=== PATIENT | female | born 1940 | race Caucasian/White ===

== ENCOUNTER → 2016-11-14 | Outpatient (CLI) | payer OTHER ==
[~2016-11-14] MED LIST: ASPI81TA28 PO; CHOL200027 PO; GLUC1TAB44 PO; MISCCAP80 PO; MULT-513 PO; NAPR1TAB9 PO; OMEG10002 PO
[2016-11-14 11:20] LABS: BASO % 0.9 %; BASO ABS # 0.04 K/uL (0-0.2); COMPLETE YES; EOS % 3.9 %; HEMATOCRIT 40.5 % (37-47); IG% 0.2 %; LYMPH % 45.9 %; LYMPH ABS # 2.01 K/uL (1.2-3.4); MEAN CELL VOLUME 92.3 fL (80-100); MEAN CORPUSCULAR HEMOGLOBIN 32.8 pg (25-34); MEAN CORPUSCULAR HGB CONC 35.6 g/dl (32-36); MONO % 7.8 %; NEUT % 41.3 %; PLATELET COUNT 208 K/uL (130-400); RED BLOOD COUNT 4.39 M/uL (4.2-5.4); WHITE BLOOD COUNT 4.38 K/uL (4.8-10.8)
[2016-11-14 11:59] LABS: ALT/SGPT 19 U/L (12-78); BLOOD UREA NITROGEN 14 mg/dl (7-18); BUN/CREATININE RATIO 18.2 (10-20); CALCIUM 8.7 mg/dl (8.5-10.1); CARBON DIOXIDE 34 mmol/L (21-32); CHLORIDE 98 mmol/L (98-107); CHOLESTEROL 213 mg/dl (0-200); CREATININE 0.74 mg/dl (0.60-1.20); GLUCOSE 87 mg/dl (70-99); POTASSIUM 3.8 mmol/L (3.5-5.1); SODIUM 135 mmol/L (136-145); TRIGLYCERIDES 91 mg/dl (0-150); VERY LOW DENSITY LIPOPROT CALC 18 mg/dl
[2016-11-14 12:02] LABS: ALB/GLOB RATIO 1.1 (0.9-2); ALKALINE PHOSPHATASE 71 U/L (45-117); AST/SGOT 19 U/L (15-37); CHOLESTEROL/HDL RATIO 2.6; HDL CHOLESTEROL 82 mg/dl; LDL CHOLESTEROL CALCULATED 113 mg/dl
== END | disposition home or self-care (01) ==
LOC: C.LABBC 09:14
PROVIDERS: ATTEND Family Medicine
DX: M85.80 Other specified disorders of bone density and structure, unspecified site (principal); E55.9 Vitamin D deficiency, unspecified; E78.5 Hyperlipidemia, unspecified; E83.110 Hereditary hemochromatosis

== ENCOUNTER → 2017-02-09 | Outpatient (CLI) | payer OTHER ==
--- NOTE | 2017-02-09 12:50 | DIAGNOSTIC IMAGING REPORT ---
CHEST 2 VIEWS ROUTINE HISTORY: Fever. Cough. COMPARISON: Chest CT 07/15/2016. FINDINGS: The heart is normal in size. Mildly tortuous thoracic aorta. No pleural effusions. No pneumothorax. Biapical densities, right greater than left. These are similar to the prior study. No new focal lung consolidations to suggest pneumonia. No evidence for pulmonary edema. IMPRESSION: No significant change compared to the prior study. No acute process. Electronically signed by: Fletcher Saunders M.D. 02/09/2017 12:49 PM Dictated Date/Time: 02/09/2017 12:45 PM
[2017-02-09 19:13] LABS: INFLUENZA A PCR Neg for Influ A (NEG); INFLUENZA B PCR Neg for Influ B (NEG)
== END | disposition home or self-care (01) ==
LOC: C.RADBC 12:21
PROVIDERS: ATTEND Family Medicine
DX: R50.9 Fever, unspecified (principal); R05 Cough

== ENCOUNTER → 2017-03-23 | Outpatient (CLI) | payer OTHER ==
[2017-03-23 14:58] LABS: LYME DISEASE AB IGG NEG (NEG)
[2017-03-23 15:01] LABS: LYME DISEASE AB IGM NEG (NEG)
== END | disposition home or self-care (01) ==
LOC: C.LABBC 08:17
PROVIDERS: ATTEND Physician Assistant
DX: T14.8 Other injury of unspecified body region (principal); W57.XXXA Bitten or stung by nonvenomous insect and other nonvenomous arthropods, initial encounter

== ENCOUNTER → 2017-05-05 | Outpatient (CLI) | payer OTHER ==
--- NOTE | 2017-05-05 14:32 | MAMMOGRAPHY REPORT ---
BILATERAL DIGITAL SCREENING MAMMOGRAM WITH CAD: 05/05/2017 CLINICAL HISTORY: Routine screening. Patient has no complaints. TECHNIQUE: Current study was also evaluated with a Computer Aided Detection (CAD) system. Bilateral CC and MLO views were obtained. COMPARISON: Comparison is made to exams dated: 04/21/2016 mammogram - [facility], mammogram, 03/31/2014 mammogram, and 03/28/2013 mammogram. BREAST COMPOSITION: The tissue of both breasts is heterogeneously dense, which may obscure small mas ses. FINDINGS: No suspicious masses, calcifications, or areas of architectural distortion are noted in ei ther breast. There has been no significant interval change compared to prior exams. A biopsy marker clip is again noted in the left 3:00 breast. Scattered bilateral benign-appearing calcifications are not significantly changed. IMPRESSION: ACR BI-RADS CATEGORY 2: BENIGN There is no mammographic evidence of malignancy. A 1 year screening mammogram is recommended. The pa tient will receive written notification of the results. Approximately 10% of breast cancers are not detected with mammography. A negative mammographic report should not delay biopsy if a clinically suggestive mass is present. Yuliana Doty M.D. ah/:05/05/2017 09:19:26 Hydrodynamics Teacher: Emma RINCON(Akash)(Sixto)(BD), [facility] letter sent: Normal 1/2 BI-RADS Code: ACR BI-RADS Category 2: Benign
== END | disposition home or self-care (01) ==
LOC: C.MAMM 08:48
PROVIDERS: ATTEND Obstetrics & Gynecology
DX: Z12.31 Encounter for screening mammogram for malignant neoplasm of breast (principal)

== ENCOUNTER → 2017-06-14 | Outpatient (CLI) | payer OTHER ==
[~2017-06-14] MED LIST changes: -ASPI81TA28 PO
--- NOTE | 2017-06-14 16:43 | DIAGNOSTIC IMAGING REPORT ---
LUMBAR SPINE W/O CONTRAST CLINICAL HISTORY: 76 years-old Female presenting with LUMBAR BACK PAIN, LUMBAR RADICULOPATHY, AFFECTING, prior lumbar surgery in 2010 on L4-5 and L5-S1, history of squamous cell skin cancer, injury to the back 6 weeks ago now with pain and numbness down the left leg. TECHNIQUE: Multisequence, multiplanar MR imaging of the lumbar spine was performed without the use of intravenous contrast. IV contrast: None. COMPARISON: None. FINDINGS: Localizer images: Unremarkable. Normal lumbar lordosis. Vertebral bodies demonstrate normal height, alignment, and bone marrow signal intensity with the exception of benign meningiomas noted in L2 and L3. Intervertebral disc desiccation and height loss noted at L3-4 and L4-5. Multilevel degenerative changes further detailed below: L1-2: Normal. L2-3: Minimal disc bulge. No significant spinal canal or neural foraminal narrowing. L3-4: Disc bulge with slight asymmetric effacement of the left lateral recess. Mild right neural foraminal narrowing. No significant spinal canal narrowing. L4-5: Annular tear suggested (series 5 image 10). Disc bulge and facet arthropathy. Postsurgical changes of L4 left hemilaminectomy. Mild bilateral neural foraminal narrowing. Ligamentum flavum thickening along the right in combination with the disc bulge efface the right lateral recess, resulting in abutment of the transiting right L5 nerve root. No significant spinal canal narrowing. L5-S1: Disc bulge and mild facet arthropathy. Postsurgical changes of L5 left hemilaminectomy. No significant neural foraminal or spinal canal narrowing. The spinal cord ends in good position at L1. Cauda equina normal in morphology. Paraspinal soft tissues demonstrate normal musculature. Small cystic lesion in the left kidney likely simple cyst. IMPRESSION: 1. Mild multilevel degenerative changes with postsurgical changes of left hemilaminectomies at L4 and L5. 2. Annular tear suggested at L4. 3. Degenerative change at L4-5 effaces the right lateral recess, resulting in abutment of the transiting right L5 nerve root. 4. Mild neural foraminal narrowing on the right at L3-4 and bilaterally at L4-5. No spinal canal narrowing. Electronically signed by: Pk Pepe M.D. 06/14/2017 4:42 PM Dictated Date/Time: 06/14/2017 4:33 PM
== END | disposition home or self-care (01) ==
LOC: C.MRIBC 15:26
PROVIDERS: ATTEND Physician Assistant Medical
DX: M54.17 Radiculopathy, lumbosacral region (principal)

== ENCOUNTER → 2017-09-21 | Day surgery (SDC) | payer OTHER ==
[2017-09-05 12:36] VITALS: Ht 166.4 cm; Wt 61.4 kg
[~2017-09-21] VITALS: Ht 166.4 cm; Wt 61.4 kg
[~2017-09-21] MED LIST changes: +LIDOCAINE HCL 1% MPF 5 ML VIAL ONE; +SODIUM CHLORIDE 0.9% INJ 10 ML VIAL ONE
--- NOTE | 2017-09-21 13:47 | History & Physical Bridge - SC ---
H&P Re-Evaluation Bridge Note: I have examined the patient, reviewed the History & Physical and in the interval since the performance of the History & Physical I have noted the following changes of clinical significance: No changes noted
[2017-09-21 14:05] VITALS: TEMP 37.3
--- NOTE | 2017-09-21 14:13 | Discharge Instructions ---
Discharge Instructions Date of Service Sep 21, 2017. Visit Reason for Visit: Sacral Radiculopathy Discharge Discharge Diagnosis / Problem: left leg pain Discharge Goals Goal(s): Decrease discomfort, Improve function Activity Recommendations Activity Limitations: resume your previous activity Anesthesia . Post Anesthesia Instructions: If you have had General Anesthesia or IV Sedation: * Do not drive today. * Resume driving when surgeon permits. * Do not make important decisions or sign legal documents today. * Call surgeon for: 1. Temperature elevations greater than 101 degrees F. 2. Uncontrollable pain. 3. Excessive bleeding. 4. Persistent nausea and vomiting. 5. Medication intolerance (nausea, vomiting or rash). * For nausea and vomiting use only clear liquids such as: tea, soda, bouillon until nausea subsides, then gradually increase diet as tolerated. * If you have any concerns or questions, call your surgeon's office. If physician is unavailable and it is an emergency, call 911 or go to the nearest emergency room. . Diet Recommendations Recommended Home Diet: resume previous diet Procedures Procedures Performed: Caudal Epidural Steroid Injection Pending Studies Studies pending at discharge: no Medical Emergencies . Who to Call and When: Medical Emergencies: If at any time you feel your situation is an emergency, please call 911 immediately. . Non-Emergent Contact Non-Emergency issues call your: Specialist . . "Provider Documentation" section prepared by Max Hamlin. .
[2017-09-21 14:21] VITALS: BP 174/82; PULSE 71; O2SAT 100
--- NOTE | 2017-09-21 15:07 | OPERATIVE REPORT ---
DATE OF OPERATION: 09/21/2017 PREOPERATIVE DIAGNOSES: L5-S1 disk disease with a left S1 radiculopathy and post-laminectomy syndrome, L4-L5 and L5-S1. POSTOPERATIVE DIAGNOSES: Same. PROCEDURE: Caudal epidural steroid injection under fluoroscopic guidance. INDICATIONS: The patient is a 76-year-old female who has problems with pain that radiating from the back into the buttocks. She is desiring conservative treatment rather than surgery for the back as she has had prior surgeries and wishes to proceed with an epidural steroid injection given the caudal approach because of her prior surgeries. PHYSICAL EXAMINATION: Pleasant female seated comfortably. She has some sciatic notch sensitivity on the left side. No issues with forward flexion or extension. She has normal lower extremity strength. Sensation is intact distally. Negative seated straight leg raises. CONSENT: Verbal and written consent was obtained from the patient. Risks and benefits were reviewed. Risks include, but are not limited to abscess and allergic reaction. The patient wishes to proceed. DESCRIPTION OF PROCEDURE: The patient was taken back into the special procedures room of the [facility], where she was maintained in a prone position. Backside was cleansed with Betadine x3 and a dry sterile dressing was applied. Fluoroscope was used to identify the sacral hiatus. Overlying skin was anesthetized with 3 mL of lidocaine 1% with a 25-gauge 1-1/2 inch needle. A 25-gauge 3-1/2 inch spinal needle was then directed under fluoroscopic guidance into the sacral canal under fluoroscopic guidance. She then underwent injection after negative aspiration of 40 mg of Depo-Medrol and 4 mL of preservative free sodium chloride. Injection was well tolerated. DISPOSITION: 1. The patient was taken out into the discharge recovery area, where she will be discharged home once discharge criteria have been met. 2. Follow up in 4 weeks at the [facility] office. I attest to the content of the Intraoperative Record and any orders documented therein. Any exception s are noted below.
== END | disposition home or self-care (01) ==
LOC: X.SURG 13:21
PROVIDERS: ATTEND Physical Medicine & Rehabilitation
DX: M43.16 Spondylolisthesis, lumbar region (principal); M96.1 Postlaminectomy syndrome, not elsewhere classified; M54.18 Radiculopathy, sacral and sacrococcygeal region; Z79.82 Long term (current) use of aspirin

== ENCOUNTER → 2017-09-27 | Outpatient (CLI) | payer OTHER ==
[~2017-09-27] MED LIST changes: -LIDOCAINE HCL 1% MPF 5 ML VIAL ONE; -SODIUM CHLORIDE 0.9% INJ 10 ML VIAL ONE
== END | disposition home or self-care (01) ==
LOC: C.LABSPEC 16:05
PROVIDERS: ATTEND Physician Assistant
DX: N94.9 Unspecified condition associated with female genital organs and menstrual cycle (principal)

== ENCOUNTER → 2017-11-02 | Outpatient (CLI) | payer OTHER ==
[2017-11-02 11:37] LABS: ALBUMIN 3.9 gm/dl (3.4-5.0); ALT/SGPT 19 U/L (12-78); BLOOD UREA NITROGEN 13 mg/dl (7-18); CARBON DIOXIDE 31 mmol/L (21-32); CREATININE 0.73 mg/dl (0.60-1.20); GLUCOSE 95 mg/dl (70-99); POTASSIUM 3.6 mmol/L (3.5-5.1); SODIUM 136 mmol/L (136-145)
[2017-11-02 11:41] LABS: ALKALINE PHOSPHATASE 69 U/L (45-117); AST/SGOT 21 U/L (15-37); CHOLESTEROL 184 mg/dl (0-200); LDL CHOLESTEROL CALCULATED 101 mg/dl; TOTAL PROTEIN 7.4 gm/dl (6.4-8.2)
== END | disposition home or self-care (01) ==
LOC: C.LABBC 07:47
PROVIDERS: ATTEND Nurse Practitioner Adult Health
DX: E78.5 Hyperlipidemia, unspecified (principal); I10 Essential (primary) hypertension; M85.80 Other specified disorders of bone density and structure, unspecified site

== ENCOUNTER → 2017-12-13 | Outpatient (CLI) | payer OTHER | END | disposition home or self-care (01) | LOC: C.LAB1850 12:29 | PROVIDERS: ATTEND Dermatology | DX: L65.9 Nonscarring hair loss, unspecified (principal) ==

== ENCOUNTER → 2018-05-08 | Outpatient (CLI) | payer OTHER ==
[~2018-05-08] MED LIST changes: +GABA-113 PO
--- NOTE | 2018-05-09 13:38 | MAMMOGRAPHY REPORT ---
BILATERAL DIGITAL SCREENING MAMMOGRAM TOMOSYNTHESIS WITH CAD: 05/08/2018 CLINICAL HISTORY: Routine screening. TECHNIQUE: The study was acquired using full field digital technology and interpreted from soft copy. Breast tomosynthesis in addition to standard 2D mammography was performed. Current study was also ev aluated with a Computer Aided Detection (CAD) system. COMPARISON: Comparison is made to exams dated: 05/05/2017 mammogram, 04/21/2016 mammogram - [facility], 04/01/2015 mammogram, 03/31/2014 mammogram, and 03/28/2013 mammogram. BREAST COMPOSITION: The tissue of both breasts is heterogeneously dense, which may obscure small mass es. FINDINGS: There is a stable coiled metallic biopsy marker clip in the 3:00 left breast. A few scatte red benign rim calcifications and minimal vascular calcification in the breasts. No suspicious mass, architectural distortion or cluster of microcalcifications is seen. IMPRESSION: ACR BI-RADS CATEGORY 1: NEGATIVE There is no mammographic evidence of malignancy. A 1 year screening mammogram is recommended.( 019) The patient will receive written notification of the results. Some breast cancers are not detected with mammography. A negative mammographic report should not vazquez y biopsy if a clinically suggestive mass is present. Maliha Rios M.D. ay/:05/08/2018 19:11:51 Base Manager: RT Enrique(Akash)(M), [facility] letter sent: Normal 1/2 BI-RADS Code: ACR BI-RADS Category 1: Negative
== END | disposition home or self-care (01) ==
LOC: C.MAMM 10:43
PROVIDERS: ATTEND Obstetrics & Gynecology
DX: Z12.31 Encounter for screening mammogram for malignant neoplasm of breast (principal)

== ENCOUNTER 2019-07-05 05:16 | Inpatient (IN) ==
--- NOTE | 2019-06-11 09:33 | PAT Medication Instructions ---
Medication Instructions Date of Service June 11, 2019 Home Medications amlodipine 2.5 mg PO QAM glucosamine sulfate dipotassium chloride 500 mg capsule 500 mg PO QAM lactobacillus combination no.4 3 billion cell capsule 3,000 mmu cells PO QAM multivitamin tablet 1 tab PO QAM acetaminophen 500 mg tablet 500 mg PO Q6H PRN calcium carbonate 600 mg calcium (1,500 mg) tablet 600 mg PO TID cholecalciferol (vitamin D3) 1,000 unit (25 mcg) tablet 1,000 units PO QAM gabapentin 400 mg capsule 400 mg PO TID omega-3 acid ethyl esters 1 gram capsule 1 cap PO QAM valacyclovir 500 mg tablet 500 mg PO BID PRN tramadol 50 mg PO TID PRN Continue as directed valacyclovir 500 mg tablet 500 mg PO BID PRN (if needed) STOP taking 2 weeks before surgery (or as soon as possible if surgery is within 2 weeks) glucosamine sulfate dipotassium chloride 500 mg capsule 500 mg PO QAM omega-3 acid ethyl esters 1 gram capsule 1 cap PO QAM DO NOT take the morning of surgery lactobacillus combination no.4 3 billion cell capsule 3,000 mmu cells PO QAM multivitamin tablet 1 tab PO QAM calcium carbonate 600 mg calcium (1,500 mg) tablet 600 mg PO TID cholecalciferol (vitamin D3) 1,000 unit (25 mcg) tablet 1,000 units PO QAM Take morning of surgery With a small sip of water, OTHERWISE NOTHING TO EAT OR DRINK AFTER MIDNIGHT: amlodipine 2.5 mg PO QAM acetaminophen 500 mg tablet 500 mg PO Q6H PRN (okay to take up to 4 hours prior to surgery if needed) gabapentin 400 mg capsule 400 mg PO TID tramadol 50 mg PO TID PRN (okay to take up to 4 hours prior to surgery if needed) Take evening before surgery acetaminophen 500 mg tablet 500 mg PO Q6H PRN (if needed) calcium carbonate 600 mg calcium (1,500 mg) tablet 600 mg PO TID gabapentin 400 mg capsule 400 mg PO TID tramadol 50 mg PO TID PRN (if needed) Other Notes If you have any questions please call us at [phone] or [phone] or [phone] or [phone]
--- NOTE | 2019-06-11 13:16 | Anesthesiology Consultation ---
Date of Service June 11, 2019 Assessment & Plan (1) Encounter for pre-operative examination: - Patient anxious RE: SAB: discussed SAB vs. GA Chart Review Chart Review: Acceptable Risk for Surgery and Patient seen in Pre Admission Testing Consults Requested none Teaching & Discussion Pre-Anesthesia Teaching/Discussion Notes: Instructed NPO after midnight before surgery,except medications with 15 cc of water. Medication instructions prov ided according to the PAT guidelines. History Surgery Operation Date: 07/05/19 13:40 Proposed Procedures p Left Anterior Total Hip Arthroplasty - Armando Brown DO Height/Weight Height: 5 ft 4.5 in Weight: 65.2 kg Allergies Allergy/AdvReac Type Severity Reaction Status Date / Time loracarbef AdvReac Unknown nausea and Verified 06/07/19 13:08 vomiting nitrofurantoin AdvReac Unknown upset Verified 06/07/19 13:08 stomach oxycodone AdvReac Unknown nausea and Verified 06/07/19 13:08 vomiting Medications Home Medications Medication Instructions Recorded Confirmed Last Taken amlodipine 2.5 mg PO QAM 11/26/18 06/07/19 Unknown glucosamine sulfate dipotassium 500 mg PO QAM cap 04/30/19 06/07/19 Unknown chloride 500 mg capsule lactobacillus combination no.4 3 3,000 mmu cells PO QAM 04/30/19 06/07/19 Unknown billion cell capsule multivitamin tablet 1 tab PO QAM 04/30/19 06/07/19 Unknown acetaminophen 500 mg tablet 500 mg PO Q6H PRN tab 05/01/19 06/07/19 Unknown calcium carbonate 600 mg calcium 600 mg PO TID tab 05/01/19 06/07/19 Unknown (1,500 mg) tablet cholecalciferol (vitamin D3) 1,000 1,000 units PO QAM tab 05/01/19 06/07/19 Unknown unit (25 mcg) tablet gabapentin 400 mg capsule 400 mg PO TID #90 cap 05/01/19 06/07/19 Unknown omega-3 acid ethyl esters 1 gram 1 cap PO QAM cap 05/01/19 06/07/19 Unknown capsule valacyclovir 500 mg tablet 500 mg PO BID PRN 05/01/19 06/07/19 Unknown tramadol 50 mg PO TID PRN 06/07/19 06/07/19 Unknown Past Medical History Medical History Osteoarthritis Notalgia paresthetica Dyslipidemia Diverticulosis Ascending aorta dilatation Mild dilated aortic root/ascending aorta (3.7cm) per 06/2017 ECHO-- plan for repeat ECHO to monitor in 2019 per vascular Varicose veins of both lower extremities Hemochromatosis gastroenterology monitoring; did not require phlebotomy on most recent testing- most recent phlebotomy 12/2018 Hypertension Exercise / Class Metabolic Activity II 4-5 Yardwork/Stairs/Walk up hill Past Family History Family History Mother Aortic aneurysm Father Inguinal hernia Alcohol abuse Aunt Colon cancer Sister Dementia Breast cancer Daughter Breast cancer Past Surgical History Surgical History History of D&C History of breast biopsy History of cataract surgery History of colonoscopy with polypectomy History of lumbar spinal [place] [facility] [place] History of tooth extraction History of vein stripping Past Anesthesia History No Hx of Anesthesia Complications and No Family Hx of Anesthesia Complications History of PONV No Hx of PONV and No Hx of Motion Sickness Social History Smoking Status: Never smoker Do You Dip or Chew Tobacco: No Hx Alcohol Use: Yes Alcohol type: wine alcohol intake frequency: a few times a week Hx Substance Use: No substance use type: does not use Review of Systems Patient denies chest pain, shortness of breath, dyspnea on exertion, reflux, cough, wheezing, palpitations. Physical Exam Vital Signs VITALS BP 163/89 P 67 TEMP 98.4 SP02 98%RA RESP 18 PHYSICAL Full neck and c-spine range of motion. Full TMJ range of motion. TMD 3 finger breaths Mallampati Score 3 Dentition: missing side, permanent bridge on lower front, several caps/crowns Lungs: clear throughout to auscultation Cardiac: regular rate and rhythm, no murmurs noted Spine: normal Carotid arteries: negative bruit Extremities: no edema Testing Laboratory Results 06/11/19 13:52 PT 10.2 Seconds (9.0-12.0) 06/11/19 13:52 INR 1.0 (0.9-1.1) 06/11/19 13:52 APTT 26.4 Seconds (21.0-31.0) 06/11/19 13:52 Blood Type A Positive 06/11/19 13:52 Antibody Screen NEGATIVE 06/11/19 13:52 05/08/19 SODIUM 136 POTASSIUM 3.9 CHLORIDE 99 CO2 31 BUN 16 CREATININE 0.70 GLUCOSE 97 Electrocardiogram Date: 01/31/19 Findings: + NSR @ (70) Chest X-Ray Date: 06/11/19 Findings: + NAD Echocardiogram Date: 07/03/17 LVEF 55-60%. No RWMA. Mild dilated aortic root/ascending aorta (3.7cm). No significant changes compared to 06/15/16 study. No significant valvular disease. Cervical Spine Date: 09/10/18 No acute fractures or subluxations identified. Degenerative changes most pr onounced the C5-6 level.
--- NOTE | 2019-06-11 14:09 | XRay Report ---
TWO VIEW CHEST CLINICAL HISTORY: Preoperative examination. FINDINGS: PA and lateral chest radiographs are compared to study dated 02/09/2017 and correlated with chest CT dated 07/15/2016. The cardiomediastinal silhouette is unremarkable. Chronic interstitial thi ckening is similar to previous. The lungs and pleural spaces are clear. Apical scarring is observed. There is no pneumothorax. The skeletal structures are osteopenic. The bony thorax appears intact. Fus ion hardware is partially imaged in the lumbar spine. IMPRESSION: No active disease in the chest. Electronically signed by: Ramos Henriquez M.D. 06/11/2019 2:07 PM
[2019-06-11 16:02] LABS: Basophils # (auto) 0.03 K/uL (0-0.2); Basophils % (auto) 0.5 %; Eosinophils # (auto) 0.13 K/uL (0-0.5); Eosinophils % (auto) 2.2 %; Hematocrit (blood only) 35.5 % (37-47); Hemoglobin 11.6 g/dL (12.0-16.0); Immature Granulocytes # (auto) 0.01 K/uL (0.00-0.02); Immature Granulocytes % (auto) 0.2 %; Lymphocytes % (auto) 43.7 %; Mean Corpuscular Hemoglobin 28.4 pg (25-34); Mean Corpuscular Hgb Conc 32.7 g/dL (32-36); Mean Platelet Volume 9.9 fL (7.4-10.4); Monocytes # (auto) 0.54 K/uL (0.11-0.59); Monocytes % (auto) 9.1 %; Neutrophils # (auto) 2.64 K/uL (1.4-6.5); Neutrophils % (auto) 44.3 %; Platelet Count 284 K/uL (130-400); RDW Coefficient of Variation 14.8 % (11.5-14.5); RDW Standard Deviation 46.7 fL (36.4-46.3); Red Blood Count 4.08 M/uL (4.2-5.4); White Blood Count 5.95 K/uL (4.8-10.8)
[2019-06-11 16:17] LABS: Partial Thromboplastin Time 26.4 Seconds (21.0-31.0); Prothrombin Time 10.2 Seconds (9.0-12.0)
[2019-07-05] MEDS ORDERED: CEFAZOLIN 1000MG 1,000 MG/7.5 ML SYR IV SCH (06:00)
[2019-07-05] MEDS ORDERED: GABAPENTIN 300 MG CAP PO SCH (06:00)
[2019-07-05] MEDS ORDERED: ACETAMINOPHEN 500 MG TAB PO SCH (06:00)
[2019-07-05] MEDS ORDERED: FAMOTIDINE 20 MG TAB PO SCH (06:00)
[2019-07-05] MEDS ORDERED: ROPIVACAINE 0.5% HCL/PF 150 MG, BUPIVACAINE 0.5% MPF 30 ML, EPINEPHrine 30MG/30ML (OR U... INSTIL SCH (06:00)
[2019-07-05] MEDS ORDERED: LR 60ML/HR IV SCH (06:00)
[2019-07-05] MEDS ORDERED: LR 500ML BOLUS, THEN 15ML/HR IV SCH (06:00)
[2019-07-05] MEDS ORDERED: TRANEXAMIC ACID 1,000 MG **IV Pre-op IV SCH (06:00)
[2019-07-05] MEDS ORDERED: BUPIVACAINE 0.5 % 5 MG/1 ML PF 10ML VIAL ONE (06:13)
[2019-07-05] MEDS ORDERED: TRANEXAMIC ACID 1,000 MG **IV Intra-op IV SCH (06:30)
[2019-07-05] MEDS ORDERED: MIDAZOLAM HCL 1 MG/ML 2ML VIAL ONE (06:35)
[2019-07-05] MEDS ORDERED: fentaNYL citrate 100 MCG/2 ML VIAL ONE (06:35)
[2019-07-05] MEDS ORDERED: PROPOFOL IV EMULSION 10 MG/ML 20 ML VIAL IV ONE ×2 (06:35→08:02)
[2019-07-05] MEDS ORDERED: LIDOCAINE HCL 2% 2 ML VIAL/AMP(20MG/ML) INFIL ONE (06:35)
--- NOTE | 2019-07-05 06:39 | History & Physical Report ---
Date of Service July 05, 2019 Assessment & Plan (1) Osteoarthritis of left hip: We will proceed with a left anterior total hip arthroplasty. Postoperatively she will be placed on aspirin for DVT prophylaxis. She will be kept overnight in the hospital for postop medical management. She plans to use energy physical therapy upon discharge. History of Present Illness Chief Complaint: Primary osteoarthritis of the left hip Primary Care Provider: Pippa Branch PA-C Brianna is a pleasant 78-year-old female who has had extensive lumbar surgery in [facility] in December. She has been recovering from that. Unfortunately she has been dealing with severe pain in both of her hips. Her left hip is worse than her right. She can barely place any weight onto her left hip. She ambulates with a walker. X-rays and clinical examination have been diagnostic for advanced osteoarthritis of the left hip. After failing conservative treatment, she has elected proceed with a left total hip arthroplasty. Allergies Allergy/AdvReac Type Severity Reaction Status Date / Time loracarbef AdvReac Unknown nausea and Verified 07/05/19 05:44 vomiting nitrofurantoin AdvReac Unknown upset Verified 07/05/19 05:44 stomach Home Medications Home Medications Medication Instructions Recorded Confirmed Type glucosamine sulfate dipotassium 500 mg PO QAM cap 04/30/19 07/05/19 History chloride 500 mg capsule lactobacillus combination no.4 3 3,000 mmu cells PO QAM 04/30/19 07/05/19 History billion cell capsule multivitamin tablet 1 tab PO QAM 04/30/19 07/05/19 History acetaminophen 500 mg tablet 500 mg PO Q6H PRN tab 05/01/19 07/05/19 History calcium carbonate 600 mg calcium 600 mg PO TID tab 05/01/19 07/05/19 History (1,500 mg) tablet cholecalciferol (vitamin D3) 1,000 1,000 units PO QAM tab 05/01/19 07/05/19 History unit (25 mcg) tablet gabapentin 400 mg capsule 400 mg PO TID #90 cap 05/01/19 07/05/19 History omega-3 acid ethyl esters 1 gram 1 cap PO QAM cap 05/01/19 07/05/19 History capsule valacyclovir 500 mg tablet 500 mg PO BID PRN 05/01/19 07/05/19 History tramadol 50 mg PO TID PRN 06/07/19 07/05/19 History amlodipine 2.5 mg tablet 2.5 mg PO DAILY #90 tab 06/13/19 07/05/19 Rx Past Med/Surg History Medical History Osteoarthritis Notalgia paresthetica Dyslipidemia Diverticulosis Ascending aorta dilatation Mild dilated aortic root/ascending aorta (3.7cm) per 06/2017 ECHO-- plan for repeat ECHO to monitor in 2019 per vascular Varicose veins of both lower extremities Hemochromatosis gastroenterology monitoring; did not require phlebotomy on most recent testing- most recent phlebotomy 12/2018 Hypertension Surgical History History of D&C History of breast biopsy History of cataract surgery History of colonoscopy with polypectomy History of lumbar spinal fusion [place] [facility] 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 Beliefs That Will Affect Care: Spiritual marital status: Current Living Situation: Spouse current occupational status: retired Other Information That Helps Us Care for You: No Feels Safe at Home: Yes Safety Concerns: Feels Safe At This Time Smoking Status: Never smoker Do You Dip or Chew Tobacco: No ; Second Hand Exposure: No ; Hx Alcohol Use: Yes Alcohol type: wine Hx Substance Use: No Childhood Exposure to Second-Hand Smoke: No caffeine: Yes Dental Care, Regularly: Yes Seatbelt Use: always Review of Systems All systems reviewed & are unremarkable except as noted in HPI & below Physical Exam Constitutional: WD/WN, vitals as above Eyes: PERRL, conjunctivae normal, anicteric sclerae ENMT: external ear and nose normal, oropharynx normal Neck: trachea midline, no thyromegaly Respiratory: normal respiratory effort Cardiovascular: RRR, no murmur, no edema Gastrointestinal (Abdomen): normal bowel sounds, soft, nontender, no hepatosplenomegaly Musculoskeletal: Physical examination of the left hip reveals decreased range of motion with flexion, internal and external rotation. There is significant groin pain with forced internal rotation of the hip his leg lengths are essentially equal. Psychiatric: A+Ox3, euthymic affect Results & Data Vital Signs (Past 12 Hours) Vital Signs Temp Pulse Resp BP Pulse Ox 07/05/19 05:56 36.7 C 79 20 154/86 H 98 Diagnostic Findings Radiographs of the left hip and pelvis demonstrate advanced osteoarthritis with joint space narrowing osteophyte formation and [id number] articulation.
[2019-07-05] MEDS ORDERED: ORTHO JOINT ANESTHETIC ONE (06:40)
[2019-07-05] MEDS ORDERED: fentaNYL citrate 100 MCG/2 ML VIAL IV PRN (06:44)
[2019-07-05] MEDS ORDERED: HYDROmorphone INJ 1 MG/ML SYRINGE IV PRN (06:44)
[2019-07-05] MEDS ORDERED: ATROPINE SULFATE 0.1 MG/ML 10ML SYR IV PRN (06:44)
[2019-07-05] MEDS ORDERED: ONDANSETRON INJ 2 MG/ML 2 ML VIAL IV PRN ×2 (06:44→10:01)
[2019-07-05] MEDS ORDERED: PROMETHAZINE HCL 6.25 MG in SODIUM CHLORIDE 0.9% 50 ML IV PRN (06:44)
[2019-07-05] MEDS ORDERED: ePHEDrine sulfate 50 MG/ML AMP IV PRN (06:44)
[2019-07-05] MEDS ORDERED: ePHEDrine sulfate 50 MG/ML SYR ONE (07:46)
[2019-07-05] MEDS ORDERED: PHENYLEPHRINE 100MCG/ML 5ML SYR ONE (08:01)
--- NOTE | 2019-07-05 08:23 | Operative Report ---
Post Operative Report Pre & Post Diagnosis Operation Date: 07/05/19 07:00 Pre-Op Diagnosis: Left Hip Osteoarthritis Post-Op Diagnosis: Left Hip Osteoarthritis I identified the patient and participated in the time-out.: Yes Procedure Operation Date: 07/05/19 07:00 Actual Procedures p Left Anterior Total Hip Arthroplasty(Left) - Armando Brown DO Surgeon Armando Brown DO Dynamite Cartridge Crimper Armando Syed PAC Estimated Blood Loss 150 Findings Consistent with Post-Op Diagnosis Specimens Left femoral head Complications none Disposition Disposition: Recovery Room Indications Patient is a pleasant 78-year-old female who presented my office with complaints of chronic increasing left hip pain. X-rays and clinical examination were diagnostic for primary osteoarthritis of the left hip. After failing conservative treatment, she elected to proceed with a left anterior total arthroplasty. Description of Procedure Implants used Biomet Taperloc total hip arthroplasty system with a size 10 high offset Taperloc stem, a 50 mm G7 cup with a 25mm screw, an E1 polyethylene liner, a 36 mm ceramic head with a -3 neck. Patient arrived at the hospital for the above procedure. They were seen in the preoperative holding area and the operative extremity was identified and signed. They were given a spinal anesthetic. They were given a preoperative antibiotic and TXA. They were taken back To the operating room and laid on the table in the supine position. The leg was brought out through a Puristst leg positioner. The hip was then prepped and draped in sterile fashion. A timeout was done and the patient and the operative extremity was properly identified. An anterior approach was used. Dissection was taken down through the fascia and the tensor muscle belly was retracted laterally and the rectus was retracted medially. The circumflex vessels were identified and ligated. The capsule was then incised and tagged for later repair. The femoral neck was then cut and the femoral head was removed. The acetabulum was exposed. Time was spent doing a complete circumferential labral release. Sequential reaming of the acetabulum up to a size 49 reamer was done. Final reamings were done under fluoroscopy to ensure appropriate version. A Biomet 50 mm G7 cup was then impacted into place. A single 25 mm screw was placed. The E1 polyethylene liner was then snapped into place. Surrounding soft tissues were then injected with 100 cc of an orthopedic pain control cocktail. The proximal femur was then exposed. Sequential broaching up to a size 10 broach was done. Off that broach a size 36 head with a -3 neck was trialed. The hip was reduced and fluoroscopic images showed anatomic alignment of the implants in acceptable length. The broach was removed. The final size 10 high offset Taperloc stem was then impacted into place. A ceramic 36 mm head with a -3 neck was then impacted into place in the hip was reduced. Final fluoroscopic images showed anatomic reduction of the hip. The capsule was then closed with #1 Vicryl suture. A dilute betadyne lavage was then done for 3 minutes. The joint was then irrigated with normal saline solution. The fascia was closed with #1 PDS suture. Skin was closed with 2-0 Vicryl, tom, and a Ann VAC dressing. The patient was then transferred to a hospital bed and taken to the post anesthesia care unit in stable condition. They tolerated the procedure well. I attest to the content of the Intraoperative Record and any orders documented therein. Any exceptions are noted below.
--- NOTE | 2019-07-05 09:10 | Fluoroscopy Report ---
FL hip LT 1V CLINICAL HISTORY: LT ANTERIOR NINA COMPARISON STUDY: Left hip radiographs December 28, 2018. FLUOROSCOPY TIME: 32.2 seconds. FLUOROSCOPIC IMAGES: 2 FINDINGS: These images demonstrate placement of a total left hip arthroplasty. Acetabular screw is no petey. Hardware is intact. No fracture. No unexpected radiopaque foreign bodies are identified. IMPRESSION: Expected findings following total left hip arthroplasty. Electronically signed by: Deondre Phan M.D. 07/05/2019 9:08 AM
--- NOTE | 2019-07-05 09:13 | XRay Report ---
XR hip 1V LT w pelvis CLINICAL HISTORY: IN PACU - A/P PELVIS and LATERAL HIP COMPARISON: 12/28/2018 DISCUSSION: Anatomic alignment posttotal left hip arthroplasty. Could contact between prosthetic and underlying bone. Expected postoperative soft tissue change IMPRESSION: Anatomic alignment posttotal left hip arthroplasty. The above report was generated using voice recognition software. It may contain grammatical, syntax or spelling errors. Electronically signed by: Hayder Burgess M.D. 07/05/2019 9:12 AM
--- NOTE | 2019-07-05 09:18 | Anesthesiology Progress Note ---
Date of Service July 05, 2019 Anesthesia Post Procedure Vital Signs Vital Signs: Temp Pulse Pulse Resp BP Pulse Ox 07/05/19 09:10 73 17 124/64 100 07/05/19 09:00 77 18 111/70 100 07/05/19 08:51 36.3 C L 85 16 118/68 97 07/05/19 05:56 36.7 C 79 20 154/86 H 98 Pain Intensity Left Hip: Pain Intensity: 2 Transfer of Care Handoff Completed per policy Notes Mental Status: alert / awake / arousable and participated in evaluation Patient Amnestic to Procedure: Yes Nausea / Vomiting: adequately controlled Pain: adequately controlled Airway Patency, RR, SpO2: stable & adequate BP & HR: stable & adequate Hydration State: stable & adequate Anesthetic Complications: no major complications apparent and Pt Satisfied with anesthetic care
[2019-07-05] MEDS ORDERED: NALOXONE HCL 0.4 MG/1 ML VIAL/CARP IV PRN (10:01)
[2019-07-05] MEDS ORDERED: MAGNESIUM HYDROXIDE SUSP 30 ML UDC PO PRN (10:01)
[2019-07-05] MEDS ORDERED: bisacodyL 10 MG SUPP PR PRN (10:01)
[2019-07-05] MEDS ORDERED: VALACYCLOVIR HCL 500 MG TABLET PO PRN (10:01)
[2019-07-05] MEDS ORDERED: METOCLOPRAMIDE HCL INJ 5 MG/ML 2 ML VIAL IV PRN (10:01)
[2019-07-05] MEDS ORDERED: HYDROmorphone INJ 0.5 MG/0.5 ML SYR IV PRN (10:01)
[2019-07-05] MEDS ORDERED: MULTIVITAMIN TAB PO SCH (10:01)
[2019-07-05] MEDS: DOCUSATE SODIUM 100 MG CAP PO SCH ×2 (12:00→20:35)
[2019-07-05] MEDS: MULTIVITAMIN TAB PO SCH (12:11)
[2019-07-05] MEDS: ASPIRIN 81 MG ECTAB PO SCH ×2 (12:11→20:36)
[2019-07-05] MEDS: KETOROLAC TROMETHAMINE 15 MG/ML VIAL IV SCH ×3 (12:12→23:08)
[2019-07-05] MEDS: SODIUM CHLORIDE 0.9% 1000ML 1,000 ML IV SCH ×2 (12:13→23:08)
[2019-07-05] MEDS: GABAPENTIN 400 MG CAP PO SCH ×2 (14:03→20:36)
[2019-07-05] MEDS: CEFAZOLIN 2000MG 2,000 MG/15 ML SYR IV SCH ×2 (14:04→23:08)
[2019-07-05] MEDS: ACETAMINOPHEN 500 MG TAB PO SCH ×2 (14:04→23:08)
[2019-07-05] MEDS: SENNA 8.6 MG TAB PO SCH (20:37)
[2019-07-06] MEDS: OXYCODONE HCL IR 5 MG TAB (IMMEDIATE RELEASE) PO PRN ×2 (04:31→09:49)
[2019-07-06] MEDS: KETOROLAC TROMETHAMINE 15 MG/ML VIAL IV SCH ×4 (05:20→23:36)
[2019-07-06] MEDS: ACETAMINOPHEN 500 MG TAB PO SCH ×3 (05:21→21:09)
[2019-07-06 05:52] LABS: Basophils # (auto) 0.01 K/uL (0-0.2); Basophils % (auto) 0.1 %; Eosinophils # (auto) 0.01 K/uL (0-0.5); Eosinophils % (auto) 0.1 %; Hematocrit (blood only) 29.7 % (37-47); Hemoglobin 9.9 g/dL (12.0-16.0); Immature Granulocytes # (auto) 0.01 K/uL (0.00-0.02); Immature Granulocytes % (auto) 0.1 %; Lymphocytes # (auto) 1.36 K/uL (1.2-3.4); Lymphocytes % (auto) 19.5 %; Mean Corpuscular Hemoglobin 29.3 pg (25-34); Mean Corpuscular Hgb Conc 33.3 g/dL (32-36); Mean Corpuscular Volume 87.9 fL (80-100); Mean Platelet Volume 9.8 fL (7.4-10.4); Monocytes # (auto) 0.82 K/uL (0.11-0.59); Monocytes % (auto) 11.7 %; Neutrophils # (auto) 4.78 K/uL (1.4-6.5); Neutrophils % (auto) 68.5 %; Platelet Count 215 K/uL (130-400); RDW Coefficient of Variation 14.7 % (11.5-14.5); RDW Standard Deviation 47.2 fL (36.4-46.3); Red Blood Count 3.38 M/uL (4.2-5.4); White Blood Count 6.99 K/uL (4.8-10.8)
[2019-07-06 06:21] LABS: BUN Creatinine Ratio 21.4 (10-20); Calcium 8.2 mg/dl (8.5-10.1); Est GFR (Non-African American) 87.1; Potassium 3.5 mmol/L (3.5-5.1)
--- NOTE | 2019-07-06 08:49 | Orthopedic Progress Note ---
Date of Service July 06, 2019 Assessment & Plan (1) Osteoarthritis of left hip: Overall she is doing very well. She is having some soreness in the hip but is not too bad. She will be seen by physical therapy today. She is on aspirin for DVT prophylaxis. We will plan discharge to home tomorrow after physical therapy. Present on Admission?: Yes Subjective Brianna was seen and examined at bedside this morning. Overall she is doing fairly well. She is not having too much pain in her left hip. She is been up and ambulating to the bathroom but not much further than that. She is looking forward to get some physical therapy. She has no other complaints. Physical Exam Musculoskeletal: On physical examination of the left hip, the Ann VAC dressings to suction. Her ligaments are equal. She is active dorsiflexion and plantarflexion of her left ankle. Sensations intact. Results & Data Vital Signs (Past 12 Hours) Vital Signs Temp Pulse Resp BP BP Pulse Ox 07/06/19 07:18 37.0 C 69 18 119/64 99 07/06/19 03:39 36.6 C 79 14 147/70 H 98 07/06/19 00:00 145/79 H 07/05/19 22:57 36.7 C 86 16 168/82 H 97 Laboratory Results H & H 06/11/19 07/06/19 Range/Units 13:52 04:49 Hgb 11.6 L 9.9 L (12.0-16.0) g/dL Hct 35.5 L 29.7 L (37-47) % Coagulation 06/11/19 Range/Units 13:52 INR 1.0 (0.9-1.1) Diagnostic Findings Postoperative x-rays of the left hip show the prosthesis to be in anatomic alignment without any evidence of fracture, dislocation, or loosening. PG Care Time/CCT Total # of Minutes Spent Total Time Spent with Patient: Total time spent is greater than 50% in coordination of care (as documented) at patient's floor/unit and/or counseling patient:
[2019-07-06] MEDS: ASPIRIN 81 MG ECTAB PO SCH ×2 (09:49→21:09)
[2019-07-06] MEDS: GABAPENTIN 400 MG CAP PO SCH ×3 (09:49→21:09)
[2019-07-06] MEDS: DOCUSATE SODIUM 100 MG CAP PO SCH ×2 (09:49→21:09)
[2019-07-06] MEDS: MULTIVITAMIN TAB PO SCH (09:50)
[2019-07-06] MEDS: AMLODIPINE BESYLATE 5 MG TAB PO SCH (09:50)
[2019-07-06] MEDS: SENNA 8.6 MG TAB PO SCH (21:09)
[2019-07-07] MEDS: OXYCODONE HCL IR 5 MG TAB (IMMEDIATE RELEASE) PO PRN ×2 (03:16→07:36)
[2019-07-07] MEDS: ACETAMINOPHEN 500 MG TAB PO SCH (05:58)
[2019-07-07] MEDS: KETOROLAC TROMETHAMINE 15 MG/ML VIAL IV SCH (05:58)
[2019-07-07] MEDS: DOCUSATE SODIUM 100 MG CAP PO SCH (07:34)
[2019-07-07] MEDS: ASPIRIN 81 MG ECTAB PO SCH (07:34)
[2019-07-07] MEDS: MULTIVITAMIN TAB PO SCH (07:34)
[2019-07-07] MEDS: AMLODIPINE BESYLATE 5 MG TAB PO SCH (07:35)
[2019-07-07] MEDS: GABAPENTIN 400 MG CAP PO SCH (07:35)
--- NOTE | 2019-07-07 08:03 | Orthopedic Progress Note ---
Date of Service July 07, 2019 Assessment & Plan (1) Osteoarthritis of left hip: Overall she is doing very well. She is having a little bit of soreness in the hip but that is controlled with the oxycodone. She is on aspirin for DVT prophylaxis. She will be seen by physical therapy again this morning. She then be discharged home with [facility]. She will follow-up with orthopedics in 2 weeks. Present on Admission?: Yes Sachin Reed was seen and examined at bedside this morning. Overall she is doing well. She is having some soreness in the hip which is to be expected. She worked well yesterday with physical therapy. She has no complaints. Physical Exam Musculoskeletal: On physical examination of the left hip, the Ann VAC dressing is to suction. Her leg lengths are equal. She has active dorsiflexion and plantarflexion of her left ankle. Results & Data Vital Signs (Past 12 Hours) Vital Signs Temp Pulse Pulse Resp BP BP Pulse Ox 07/07/19 07:11 80 121/70 07/07/19 06:00 36.5 C 85 15 169/87 H 98 07/06/19 23:24 36.7 C 77 15 155/71 H 98 PG Care Time/CCT Total # of Minutes Spent Total Time Spent with Patient: Total time spent is greater than 50% in coordination of care (as documented) at patient's floor/unit and/or counseling patient:
--- NOTE | 2019-07-07 08:04 | Discharge Summary ---
Date of Service July 07, 2019 Admission HPI Per Admitting Provider Brianna is a pleasant 78-year-old female who has had extensive lumbar surgery in [facility] in December. She has been recovering from that. Unfortunately she has been dealing with severe pain in both of her hips. Her left hip is worse than her right. She can barely place any weight onto her left hip. She ambulates with a walker. X-rays and clinical examination have been diagnostic for advanced osteoarthritis of the left hip. After failing conservative treatment, she has elected proceed with a left total hip arthroplasty. Principal Diagnosis Left total hip arthroplasty Discharge Data Allergies Allergy/AdvReac Type Severity Reaction Status Date / Time loracarbef AdvReac Unknown nausea and Verified 07/05/19 05:44 vomiting nitrofurantoin AdvReac Unknown upset Verified 07/05/19 05:44 stomach Consultations 07/06/19 08:00 Consult Case Management - Discharge Planning Routine Procedures Performed Operation Date: 07/05/19 07:00 Actual Procedures p Left Anterior Total Hip Arthroplasty(Left) - Armando Brown DO Ordered Studies 07/05/19 07:00 FL fluoroscopy <1hr Routine FL hip LT 1V Routine Hospital Course (1) Osteoarthritis of left hip: On July 05, 2019, Brianna arrived at [facility] and underwent a left total hip arthroplasty without complication. Postoperatively she was started on aspirin for DVT prophylaxis. She was discharged to general orthopedic floors. Her hospital course was uneventful. On postop day #1 her H&H was stable and her pain was well controlled. She was able to participate well with physical therapy doing ambulation and range of motion exercises. On postop day #2 she continued to do well. Her pain was controlled. She was seen 1 more time by physical therapy. She was then discharged [facility] with [facility]. She will follow-up with orthopedics in 2 weeks. Total Time Total Time Spent Total Time Spent (In Minutes): 20 Discharge Plan Discharge Items Patient Disposition: Home - Home Health Services Reason For Visit: Left Hip Osteoarthritis Discharge Diagnosis: Left total hip arthroplasty Activity: As commented below Non-emergency contact: Surgeon Call non-emergency contact if: your wound has increased redness and your wound has increased drainage Follow-up/Referrals: Pippa Branch PA-C [Primary Care Provider] - Diet: Regular Addtl Attending Provider Instructions: Activity and Therapy Recommendations: * If you are using [facility] then therapy will be provided at your home until they feel you have accomplished all of your goals. * If you are using [facility] then Physical Therapy will be provided until they feel you are ready to start Outpatient Physical Therapy. * If you are not using home therapy then Outpatient Physical Therapy should start about 3-5 days from your day of surgery. Therapy will last about 6-10 weeks * You were shown a series of exercises in the hospital. Do these exercises three times each day including the exercises you were shown in physical therapy. * Get up and walk several times each day.~ For the first four weeks, try not to stand or walk for more than one hour at a time. If you do stand or walk for more than one hour, you will not hurt anything, but your leg will likely swell.~~ * As you feel comfortable, you may change from the walker or crutches to a cane and~then to independent walking. Medications: * Narcotic You will likely be sent home from the hospital with a prescription for the narcotic pain medication that worked best throughout your stay. * Aspirin Most patients will be required to take Aspirin 81mg twice a day for 6 weeks after surgery. This is obtained [id number] and a prescription is not necessary. * Other medications may be prescribed for specific circumstances. If you have any questions, please call the office at . * Resume previous home medications unless otherwise instructed TEDs/Elastic Stockings: The white elastic stockings help limit swelling and prevent blood clots from forming in your legs. The more you wear them, the more they work. Wear them for six weeks. Dressing Care: You will likely have a purple VAC dressing after surgery. This dressing will keep the incision dry and promote early healing. After about 7 days the batteries will wear out and the VAC will lose suction. Simply remove the dressing at that time and throw everything away, including the small suction machine. Then, you may leave the tom open to air or cover them with a dry dressing so they do not rub on your pants. The tom will be removed at your 2 week follow-up appointment. Showering: You may shower immediately with the purple VAC dressing. Let the shower spray hit your opposite side and slowly pat the plastic dry. Do not soak the dressing. After the dressing is removed you may shower normally with the tom exposed. Let soapy water run over the tom and pat them dry. Things To Watch For: * Drainage from the incision site that occurs more than one week after your surgery. * Increased redness at the incision site. * Fever above 102 degrees Fahrenheit. * Unusual chest pain or shortness of breath. * Call [facility] at with any of the above problems Follow-Up Visit: Follow-up with Dr. Brown 2-3 weeks after your day of surgery. An appointment was probably scheduled when you signed-up for surgery in the office. If you have any questions call Office Instructions: More detailed instructions as well as Frequently Asked Questions were provided in a folder by our office when you signed-up for surgery. Please review these instructions when you get home. If you have any further questions or concerns, please feel free to call the office at [phone] Pending Studies at Discharge: No Stand-Alone Forms: My [facility] Medications and DC Order Prescriptions: New oxycodone 5 mg Tablet 5 mg PO Q4H PRN (Reason: pain) Qty: 30 RF: 0 aspirin [Ecotrin Low Strength] 81 mg Tablet,Delayed Release (Dr/Ec) 81 mg PO BID Qty: 0 RF: 0 Continued amlodipine 2.5 mg tablet 2.5 mg PO DAILY Qty: 90 RF: 3 multivitamin [Daily Multi-Vitamin] tablet 1 tab PO QAM RF: 0 Glucosamine Relief 500 mg capsule 500 mg PO QAM RF: 0 Probiotic 3 billion cell capsule 3,000 mmu cells PO QAM RF: 0 calcium carbonate 600 mg calcium (1,500 mg) tablet 600 mg PO TID RF: 0 omega-3 acid ethyl esters 1 gram capsule 1 cap PO QAM RF: 0 gabapentin 400 mg capsule 400 mg PO TID Qty: 90 RF: 0 valacyclovir [Valtrex] 500 mg tablet 500 mg PO BID PRN (Reason: BREAKOUT) RF: 0 cholecalciferol (vitamin D3) 1,000 unit (25 mcg) tablet 1,000 units PO QAM RF: 0 acetaminophen [Tylenol Extra Strength] 500 mg tablet 500 mg PO Q6H PRN (Reason: Pain) RF: 0 Discontinued tramadol 50 mg Tablet 50 mg PO TID PRN (Reason: Pain) RF: 0 Discharge Orders: Discharge Order (Routine); Ordered 07/07/19 Ordered By: Armando Brown Admission Data Admit Date/Time: 07/05/19 08:55 Attending Provider: Armando Brown Admit Provider: Armando Brown Primary Care Provider: Pippa Branch
== END 2019-07-07 11:43 | disposition home health service (06) | DRG 470 ==
LOC: ASU 05:16 → 3E 08:55

== ENCOUNTER 2019-10-11 05:12 | Inpatient (IN) ==
--- NOTE | 2019-09-23 16:00 | PAT Medication Instructions ---
Medication Instructions Date of Service September 23, 2019 Home Medications Medication Instructions Recorded oxycodone 5 mg PO Q4H PRN #30 tab 07/07/19 oxycodone-acetaminophen 5 mg-325 1 tab PO Q6H PRN #30 tab 08/02/19 mg tablet glucosamine sulfate 2KCl 500 mg capsule 500 mg PO QAM lactobacillus combination no.4 3 billion cell capsule 3,000 mmu cells PO QAM multivitamin 1 tab PO QAM acetaminophen 500 mg tablet 500 mg PO Q6H PRN calcium carbonate 600 mg calcium (1,500 mg) tablet 600 mg PO BID cholecalciferol (vitamin D3) 25 mcg (1,000 unit) tablet 1,000 units PO QAM gabapentin 400 mg capsule 400 mg PO TID omega-3 acid ethyl esters 1 gram capsule 1 cap PO QAM oxycodone 5 mg PO Q4H PRN oxycodone-acetaminophen 5 mg-325 mg tablet 1 tab PO Q6H PRN amlodipine 2.5 mg PO QAM tramadol 25 mg PO TID PRN STOP taking 2 weeks before surgery If surgery is within 2 weeks, stop taking as soon as possible. glucosamine sulfate 2KCl 500 mg capsule 500 mg PO QAM omega-3 acid ethyl esters 1 gram capsule 1 cap PO QAM DO NOT take the morning of surgery lactobacillus combination no.4 3 billion cell capsule 3,000 mmu cells PO QAM multivitamin 1 tab PO QAM calcium carbonate 600 mg calcium (1,500 mg) tablet 600 mg PO BID cholecalciferol (vitamin D3) 25 mcg (1,000 unit) tablet 1,000 units PO QAM Take morning of surgery With a small sip of water, OTHERWISE NOTHING TO EAT OR DRINK AFTER MIDNIGHT: acetaminophen 500 mg tablet 500 mg PO Q6H PRN (if needed, may be taken up to four hours before surgery) gabapentin 400 mg capsule 400 mg PO TID oxycodone 5 mg PO Q4H PRN (if needed, may be taken up to four hours before surgery) oxycodone-acetaminophen 5 mg-325 mg tablet 1 tab PO Q6H PRN (if needed, may be taken up to four hours before surgery) amlodipine 2.5 mg PO QAM tramadol 25 mg PO TID PRN (if needed, may be taken up to four hours before surgery) Other Notes If you have any questions please call us at [phone] or [phone] or [phone] or [phone]
--- NOTE | 2019-09-24 11:06 | Anesthesiology Consultation ---
Date of Service September 24, 2019 Assessment & Plan (1) Encounter for pre-operative examination: 07/05/19 = SAB at L3-L4, pt tyshawn well. Chart Review Chart Review: Acceptable Risk for Surgery (pending pre-op labs) and Patient seen in Pre Admission Testing Teaching & Discussion Instructed NPO after midnight before surgery, except medications with 15 cc of water. Medication instructions provided according to the PAT guidelines. History Surgery Operation Date: 10/11/19 11:30 Proposed Procedures p Right Anterior Total Hip Arthroplasty - Armando Brown DO Height/Weight Height: 5 ft 5 in Weight: 71.214 kg Allergies Allergy/AdvReac Type Severity Reaction Status Date / Time loracarbef AdvReac Unknown nausea and Verified 09/24/19 09:59 vomiting nitrofurantoin AdvReac Unknown upset Verified 09/24/19 09:59 stomach Medications Home Medications Medication Instructions Recorded Confirmed Last Taken glucosamine sulfate 2KCl 500 mg 500 mg PO QAM cap 04/30/19 09/19/19 06/21/19 capsule lactobacillus combination no.4 3 3,000 mmu cells PO QAM 04/30/19 09/19/19 07/04/19 06:00 billion cell capsule multivitamin 1 tab PO QAM 04/30/19 09/19/19 06/21/19 acetaminophen 500 mg tablet 500 mg PO Q6H PRN tab 05/01/19 09/19/19 07/05/19 03:00 1000 mg calcium carbonate 600 mg calcium 600 mg PO BID tab 05/01/19 09/19/19 07/04/19 12:00 (1,500 mg) tablet cholecalciferol (vitamin D3) 25 1,000 units PO QAM tab 05/01/19 09/19/19 07/04/19 06:00 mcg (1,000 unit) tablet gabapentin 400 mg capsule 400 mg PO TID #90 cap 05/01/19 09/19/19 07/05/19 05:00 omega-3 acid ethyl esters 1 gram 1 cap PO QAM cap 05/01/19 09/19/19 06/21/19 capsule amlodipine 2.5 mg PO QAM 09/19/19 09/19/19 Unknown tramadol 25 mg PO TID PRN 09/19/19 09/19/19 Unknown Past Medical History Medical History Ascending aorta dilatation Mild dilated aortic root/ascending aorta (3.7cm) per 06/2017 ECHO-- plan for repeat ECHO to monitor in 2020 per vascular Diverticulosis Dyslipidemia (Chronic) NO MEDS Hemochromatosis gastroenterology monitoring; did not require phlebotomy on most recent testing- most recent phlebotomy 12/2018 Hypertension Notalgia paresthetica Osteoarthritis Varicose veins of both lower extremities Exercise / Class Metabolic Activity II 4-5 Yardwork/Stairs/Walk up hill (Denies CP or SOB with 1 FOS) Past Surgical History Surgical History (Updated 09/24/19 @ 11:08 by Master Elkins) History of breast biopsy History of cataract surgery R/L History of colonoscopy with polypectomy History of D&C History of lumbar spinal fusion 01/2019 [facility]. L3-L4 laminectomy, revision decompression L4-L5, fusion L3-L4 with instrumentation, iliac crest bone graft. History of tooth extraction History of total hip arthroplasty LEFT 06/2019 History of vein stripping Past Anesthesia History No Hx of Anesthesia Complications and No Family Hx of Anesthesia Complications L NINA 06/2019 = SAB WITHOUT ISSUES. History of PONV No Hx of PONV and No Hx of Motion Sickness Social History Smoking Status: Never smoker Do You Dip or Chew Tobacco: No Hx Alcohol Use: Yes Alcohol type: wine alcohol intake frequency: a few times a week Hx Substance Use: No substance use type: does not use Review of Systems Pt denies any recent chest pain, shortness of breath, palpitations, cough, fever or URI. Physical Exam Vital Signs BP: 126/73 P: 71bpm SPO2: 95% RA T: 98.6 F R: 16 ENMT Mouth: + dental bridge (lower front) and + dental restorations (few crowns); no chipped teeth and no loose teeth Thyromental Distance: < 3.5 Finger Breadths (3) Mallampati Class: I Neck normal visual inspection; neck extension not limited Respiratory normal respiratory effort Auscultation: lungs clear to auscultation bilaterally Cardiovascular Rate/Rhythm: regular rate and regular rhythm Heart Sounds: no murmur Extremities: no edema Testing Electrocardiogram Date: 01/31/19 Findings: + NSR @ (70) Chest X-Ray Date: 06/11/19 Findings: + NAD Echocardiogram Date: 07/03/17 LVEF 55-60%. No RWMA. Mild dilated aortic root/ascending aorta (3.7cm). No significant changes compared to 06/15/16 study. No significant valvular disease. Cervical Spine Date: 09/10/18 No acute fractures or subluxations identified. Degenerative changes most pronounced the C5-6 level.
[2019-09-24 13:58] LABS: Basophils # (auto) 0.03 K/uL (0-0.2); Basophils % (auto) 0.5 %; Eosinophils # (auto) 0.13 K/uL (0-0.5); Eosinophils % (auto) 2.2 %; Hematocrit (blood only) 37.6 % (37-47); Hemoglobin 12.1 g/dL (12.0-16.0); Immature Granulocytes # (auto) 0.01 K/uL (0.00-0.02); Immature Granulocytes % (auto) 0.2 %; Lymphocytes # (auto) 1.93 K/uL (1.2-3.4); Lymphocytes % (auto) 33.3 %; Mean Corpuscular Hemoglobin 29.2 pg (25-34); Mean Corpuscular Hgb Conc 32.2 g/dL (32-36); Mean Corpuscular Volume 90.8 fL (80-100); Mean Platelet Volume 10.2 fL (7.4-10.4); Monocytes # (auto) 0.42 K/uL (0.11-0.59); Monocytes % (auto) 7.3 %; Neutrophils # (auto) 3.27 K/uL (1.4-6.5); Neutrophils % (auto) 56.5 %; Platelet Count 278 K/uL (130-400); RDW Coefficient of Variation 14.6 % (11.5-14.5); RDW Standard Deviation 48.3 fL (36.4-46.3); Red Blood Count 4.14 M/uL (4.2-5.4); White Blood Count 5.79 K/uL (4.8-10.8)
[2019-09-24 14:09] LABS: Partial Thromboplastin Ratio 0.9; Partial Thromboplastin Time 25.7 Seconds (21.0-31.0); Prothrombin Time 10.3 Seconds (9.0-12.0)
--- NOTE | 2019-10-10 06:50 | History & Physical Report ---
Date of Service October 10, 2019 Assessment & Plan (1) Osteoarthritis of right hip: We will proceed with a right anterior total of arthroplasty. Postoperatively she will be started on aspirin for DVT prophylaxis and kept overnight in the hospital for postoperative medical management. She plans to [facility] upon discharge. Present on Admission?: Yes History of Present Illness Chief Complaint: Primary osteoarthritis of the right hip Primary Care Provider: NO PCP Brianna is a pleasant 79-year-old female who presented my office with complaints of chronic increasing right hip and groin pain. X-rays and clinical examination were diagnostic for primary osteoarthritis of the right hip. After failing conservative treatment, she elected to proceed with a right anterior total hip arthroplasty. Allergies Allergy/AdvReac Type Severity Reaction Status Date / Time loracarbef AdvReac Unknown nausea and Verified 09/24/19 09:59 vomiting nitrofurantoin AdvReac Unknown upset Verified 09/24/19 09:59 stomach Home Medications Home Medications Medication Instructions Recorded Confirmed Type glucosamine sulfate 2KCl 500 mg 500 mg PO QAM cap 04/30/19 09/19/19 History capsule lactobacillus combination no.4 3 3,000 mmu cells PO QAM 04/30/19 09/19/19 History billion cell capsule multivitamin 1 tab PO QAM 04/30/19 09/19/19 History acetaminophen 500 mg tablet 500 mg PO Q6H PRN tab 05/01/19 09/19/19 History calcium carbonate 600 mg calcium 600 mg PO BID tab 05/01/19 09/19/19 History (1,500 mg) tablet cholecalciferol (vitamin D3) 25 1,000 units PO QAM tab 05/01/19 09/19/19 History mcg (1,000 unit) tablet gabapentin 400 mg capsule 400 mg PO TID #90 cap 05/01/19 09/19/19 History omega-3 acid ethyl esters 1 gram 1 cap PO QAM cap 05/01/19 09/19/19 History capsule amlodipine 2.5 mg PO QAM 09/19/19 09/19/19 History tramadol 25 mg PO TID PRN 09/19/19 09/19/19 History Past Med/Surg History Medical History Ascending aorta dilatation Mild dilated aortic root/ascending aorta (3.7cm) per 06/2017 ECHO-- plan for repeat ECHO to monitor in 2020 per vascular Diverticulosis Dyslipidemia (Chronic) NO MEDS Hemochromatosis gastroenterology monitoring; did not require phlebotomy on most recent testing- most recent phlebotomy 12/2018 Hypertension Notalgia paresthetica Osteoarthritis Varicose veins of both lower extremities Surgical History History of breast biopsy History of cataract surgery R/L History of colonoscopy with polypectomy History of D&C [place] of [place] [facility] [place]L4 [place], revision decompression L4-L5, fusion L3-L4 with instrumentation, iliac crest bone graft. History of tooth extraction History of total hip arthroplasty LEFT 06/2019 History of vein stripping Family History Mother Aortic aneurysm Father Inguinal hernia Alcohol abuse Aunt Colon cancer Sister Dementia Breast cancer Daughter Breast cancer Social History Preferred Language: Malaysian Communication Ability: Effective Hearing Ability: Normal Chief Technician X Ray Required: No Beliefs That Will Affect Care: Spiritual marital status: Current Living Situation: Spouse current occupational status: retired Other Information That Helps Us Care for You: No Feels Safe at Home: Yes Safety Concerns: Feels Safe At This Time Smoking Status: Never smoker Do You Dip or Chew Tobacco: No ; Second Hand Ex posure: No ; Hx Alcohol Use: Yes Alcohol type: wine Hx Substance Use: No Childhood Exposure to Second-Hand Smoke: No caffeine: Yes Dental Care, Regularly: Yes Seatbelt Use: always Review of Systems All systems reviewed & are unremarkable except as noted in HPI & below Physical Exam Constitutional: WD/WN, vitals as above Eyes: PERRL, conjunctivae normal, anicteric sclerae ENMT: external ear and nose normal, oropharynx normal Neck: trachea midline, no thyromegaly Respiratory: normal respiratory effort Cardiovascular: RRR, no murmur, no edema Gastrointestinal (Abdomen): normal bowel sounds, soft, nontender, no hepatosplenomegaly Musculoskeletal: Physical examination of the right hip reveals decreased range of motion with flexion, internal and external rotation. There is significant groin pain with forced internal rotation of the hip his leg lengths are essentially equal. Psychiatric: A+Ox3, euthymic affect Results & Data Diagnostic Findings Radiographs of the right hip and pelvis demonstrate advanced osteoarthritis with joint space narrowing osteophyte formation and [id number] articulation.
[2019-10-11] MEDS ORDERED: dexAMETHasone 4 MG TAB PO SCH (06:00)
[2019-10-11] MEDS ORDERED: LR 500ML BOLUS, THEN 15ML/HR IV SCH (06:00)
[2019-10-11] MEDS ORDERED: TRANEXAMIC ACID 1,000 MG **IV Pre-op IV SCH (06:00)
[2019-10-11] MEDS ORDERED: TRANEXAMIC ACID 1,000 MG **IV Intra-op IV SCH (06:00)
[2019-10-11] MEDS ORDERED: LR 60ML/HR IV SCH (06:00)
[2019-10-11] MEDS ORDERED: GABAPENTIN 300 MG CAP PO SCH (06:00)
[2019-10-11] MEDS ORDERED: ACETAMINOPHEN 500 MG TAB PO SCH (06:00)
[2019-10-11] MEDS ORDERED: FAMOTIDINE 20 MG TAB PO SCH (06:00)
[2019-10-11] MEDS ORDERED: ROPIVACAINE 0.5% HCL/PF 150 MG, BUPIVACAINE 0.5% MPF 30 ML, EPINEPHrine 30MG/30ML (OR U... INFIL SCH (06:00)
[2019-10-11] MEDS ORDERED: CEFAZOLIN 1000MG 1,000 MG/7.5 ML SYR IV SCH (06:00)
[2019-10-11] MEDS ORDERED: BUPIVACAINE 0.5 % 5 MG/1 ML PF 10ML VIAL ONE (06:24)
[2019-10-11] MEDS ORDERED: ORTHO JOINT ANESTHETIC ONE (06:28)
[2019-10-11] MEDS ORDERED: fentaNYL citrate 100 MCG/2 ML VIAL IV PRN (06:34)
[2019-10-11] MEDS ORDERED: ATROPINE SULFATE 0.1 MG/ML 10ML SYR IV PRN (06:34)
[2019-10-11] MEDS ORDERED: ePHEDrine sulfate 50 MG/ML AMP IV PRN (06:34)
[2019-10-11] MEDS ORDERED: ONDANSETRON INJ 2 MG/ML 2 ML VIAL IV PRN ×2 (06:34→10:06)
[2019-10-11] MEDS ORDERED: MIDAZOLAM HCL 1 MG/ML 2ML VIAL ONE (06:41)
[2019-10-11] MEDS ORDERED: fentaNYL citrate 100 MCG/2 ML VIAL ONE (06:41)
--- NOTE | 2019-10-11 06:47 | History & Physical Bridge Note ---
Date of Service October 11, 2019 History & Physical Bridge Note I have examined the patient, reviewed the History & Physical and in the interval since the performance of the History & Physical I have noted the following changes of clinical significance: no changes noted
--- NOTE | 2019-10-11 08:17 | Operative Report ---
PG Post Operative Report Pre & Post Diagnosis Operation Date: 10/11/19 07:00 Pre-Op Diagnosis: Right Hip Degenerative Joint Disease Post-Op Diagnosis: Right Hip Degenerative Joint Disease I identified the patient and participated in the time-out.: Yes Procedure Operation Date: 10/11/19 07:00 Actual Procedures p Right Anterior Total Hip Arthroplasty, Uncemented(Right) - Armando Brown DO Surgeon Armando Brown, Manager Of Corporate Communications Armando Syed PAC Estimated Blood Loss 250 Findings Consistent with Post-Op Diagnosis Specimens Right femoral head Complications none Disposition Disposition: Recovery Room Indications Brianna is a pleasant 79-year-old female who presented my office with complaints of chronic increasing right hip and groin pain. X-rays clinical examination were diagnostic for primary osteoarthritis of the right hip. After failing conservative treatment, she elected proceed with a right total hip arthroplasty. She did have a left total hip replacement done in the past and did very well with that. Description of Procedure Implants used Biomet Taperloc total hip arthroplasty system with a size 10 high offset Taperloc stem, a 52 mm G7 cup with a 25mm screw, an E1 polyethylene liner, a 36 mm ceramic head with a -3 neck. Patient arrived at the hospital for the above procedure. They were seen in the preoperative holding area and the operative extremity was identified and signed. They were given a spinal anesthetic. They were given a preoperative antibiotic and TXA. They were taken back To the operating room and laid on the table in the supine position. The leg was brought out through a Puristst leg positioner. The hip was then prepped and draped in sterile fashion. A timeout was done and the patient and the operative extremity was properly identified. An anterior approach was used. Dissection was taken down through the fascia and the tensor muscle belly was retracted laterally and the rectus was retracted medially. The circumflex vessels were identified and ligated. The capsule was then incised and tagged for later repair. The femoral neck was then cut and the femoral head was removed. The acetabulum was exposed. Time was spent doing a complete circumferential labral release. Sequential reaming of the acetabulum up to a size 51 reamer was done. Final reamings were done under fluoroscopy to ensure appropriate version. A Biomet 52 mm G7 cup was then impacted into place. A single 25 mm screw was placed. The E1 polyethylene liner was then snapped into place. Surrounding soft tissues were then injected with 100 cc of an orthopedic pain control cocktail. The proximal femur was then exposed. Sequential broaching up to a size 10 broach was done. Off that broach a size 36 head with a -3 neck was trialed. The hip was reduced and fluoroscopic images showed anatomic alignment of the implants in acceptable length. The broach was removed. The final size 10 high offset Taperloc stem was then impacted into place. A ceramic 36 mm head with a -3 neck was then impacted into place in the hip was reduced. Final fluoroscopic images showed anatomic reduction of the hip. The capsule was then closed with #1 Vicryl suture. A dilute betadyne lavage was then done for 3 minutes. The joint was then irrigated with normal saline solution. The fascia was closed with #1 PDS suture. Skin was closed with 2-0 Vicryl, tom, and a Ann VAC dressing. The patient was then transferred to a hospital bed and taken to the post anesthesia care unit in stable condition. They tolerated the procedure well. I attest to the content of the Intraoperative Record and any orders documented therein. Any exceptions are noted below.
[2019-10-11] MEDS ORDERED: LIDOCAINE HCL 2% 2 ML VIAL/AMP(20MG/ML) INFIL ONE (08:20)
[2019-10-11] MEDS ORDERED: ONDANSETRON INJ 2 MG/ML 2 ML VIAL ONE (08:20)
[2019-10-11] MEDS ORDERED: PROPOFOL IV EMULSION 10 MG/ML 20 ML VIAL IV ONE (08:20)
--- NOTE | 2019-10-11 08:53 | Anesthesiology Progress Note ---
Date of Service October 11, 2019 Anesthesia Post Procedure Vital Signs Vital Signs: Temp Pulse Pulse Resp BP Pulse Ox 10/11/19 08:40 76 17 130/74 100 10/11/19 08:33 97.2 F L 83 16 126/72 99 10/11/19 05:34 98.4 F 84 18 161/91 H 99 Transfer of Care Handoff Completed per policy Notes Mental Status: alert / awake / arousable and participated in evaluation Patient Amnestic to Procedure: Yes Nausea / Vomiting: adequately controlled Pain: adequately controlled Airway Patency, RR, SpO2: stable & adequate BP & HR: stable & adequate Hydration State: stable & adequate Neuraxial Anesthesia: was administered and sensory block is resolving Anesthetic Complications: no major complications apparent and Pt Satisfied with anesthetic care
--- NOTE | 2019-10-11 08:58 | XRay Report ---
XR hip 1V RT w pelvis HISTORY: 79 years-old Female IN PACU - A/P PELVIS and LATERAL HIP right hip total joint arthroplast y COMPARISON: Pelvis and left hip radiographs 07/05/2019 TECHNIQUE: AP view of the pelvis with crosstable lateral view of the right hip FINDINGS: Left hip total joint arthroplasty redemonstrated. Right hip total joint arthroplasty demonstrates sat isfactory alignment. Lateral skin tom are noted along with surgical drainage catheter and expecte d postsurgical soft tissue swelling with deep tissue air. No acute fracture or retained foreign body identified. Pelvic basin calcifications are suggestive of phleboliths. Arterial calcifications are al so noted. IMPRESSION: Right hip total joint arthroplasty with expected postoperative findings. ACT 112: Negative or not required by law. The above report was generated using voice recognition software. It may contain grammatical, syntax o r spelling errors. Electronically signed by: Agustin Thomas M.D. 10/11/2019 8:57 AM
--- NOTE | 2019-10-11 09:37 | Fluoroscopy Report ---
FL hip RT 1V HISTORY: 79 years-old Female RT ANTERIOR HIP right hip total joint arthroplasty COMPARISON: Radiographs of the pelvis and right hip of same day TECHNIQUE: 2 spot fluoroscopic images of the right hip were obtained utilizing 18.5 seconds fluorosco py time FINDINGS: Satisfactory alignment of the right hip total joint arthroplasty. Expected postsurgical soft tissue s welling and deep tissue air about the right hip is noted. No acute fracture or retained foreign body identified. IMPRESSION: Fluoroscopic assistance as above. Please see operative report for further details. ACT 112: Negative or not required by law. The above report was generated using voice recognition software. It may contain grammatical, syntax o r spelling errors. Electronically signed by: Agustin Thomas M.D. 10/11/2019 9:35 AM
[2019-10-11] MEDS ORDERED: bisacodyL 10 MG SUPP PR PRN (10:06)
[2019-10-11] MEDS ORDERED: NALOXONE HCL 0.4 MG/1 ML VIAL/CARP IV PRN (10:06)
[2019-10-11] MEDS ORDERED: MAGNESIUM HYDROXIDE SUSP 30 ML UDC PO PRN (10:06)
[2019-10-11] MEDS ORDERED: HYDROmorphone INJ 0.5 MG/0.5 ML SYR IV PRN (10:06)
[2019-10-11] MEDS ORDERED: METOCLOPRAMIDE HCL INJ 5 MG/ML 2 ML VIAL IV PRN (10:06)
[2019-10-11] MEDS: AMLODIPINE BESYLATE 5 MG TAB PO SCH (10:59)
[2019-10-11] MEDS: DOCUSATE SODIUM 100 MG CAP PO SCH ×2 (11:00→20:29)
[2019-10-11] MEDS: MULTIVITAMIN TAB PO SCH (11:00)
[2019-10-11] MEDS: SODIUM CHLORIDE 0.9% 1000ML 1,000 ML IV SCH ×2 (11:03→20:27)
[2019-10-11] MEDS: KETOROLAC TROMETHAMINE 15 MG/ML VIAL IV SCH ×3 (11:04→22:09)
[2019-10-11] MEDS: ASPIRIN 81 MG ECTAB PO SCH ×2 (11:11→20:29)
[2019-10-11] MEDS: OXYCODONE HCL IR 5 MG TAB (IMMEDIATE RELEASE) PO PRN ×2 (12:31→18:34)
[2019-10-11] MEDS: ACETAMINOPHEN 500 MG TAB PO SCH ×2 (14:22→21:03)
[2019-10-11] MEDS: GABAPENTIN 400 MG CAP PO SCH ×2 (14:23→20:29)
[2019-10-11] MEDS: CEFAZOLIN 2000MG 2,000 MG/15 ML SYR IV SCH ×2 (15:48→22:14)
[2019-10-11] MEDS: SENNA 8.6 MG TAB PO SCH (20:29)
[2019-10-12] MEDS: OXYCODONE HCL IR 5 MG TAB (IMMEDIATE RELEASE) PO PRN ×3 (00:47→17:08)
[2019-10-12] MEDS: ACETAMINOPHEN 500 MG TAB PO SCH ×3 (05:00→21:05)
[2019-10-12] MEDS: KETOROLAC TROMETHAMINE 15 MG/ML VIAL IV SCH ×4 (05:00→21:09)
[2019-10-12 06:18] LABS: Basophils # (auto) 0.01 K/uL (0-0.2); Basophils % (auto) 0.1 %; Hematocrit (blood only) 28.4 % (37-47); Hemoglobin 9.4 g/dL (12.0-16.0); Immature Granulocytes # (auto) 0.01 K/uL (0.00-0.02); Immature Granulocytes % (auto) 0.1 %; Lymphocytes # (auto) 1.69 K/uL (1.2-3.4); Lymphocytes % (auto) 17.7 %; Mean Corpuscular Hemoglobin 29.2 pg (25-34); Mean Corpuscular Hgb Conc 33.1 g/dL (32-36); Mean Corpuscular Volume 88.2 fL (80-100); Mean Platelet Volume 9.6 fL (7.4-10.4); Monocytes # (auto) 0.86 K/uL (0.11-0.59); Neutrophils # (auto) 6.98 K/uL (1.4-6.5); Neutrophils % (auto) 73.1 %; Platelet Count 191 K/uL (130-400); RDW Coefficient of Variation 14.5 % (11.5-14.5); RDW Standard Deviation 46.8 fL (36.4-46.3); Red Blood Count 3.22 M/uL (4.2-5.4); White Blood Count 9.55 K/uL (4.8-10.8)
[2019-10-12 06:50] LABS: BUN Creatinine Ratio 22.7 (10-20); Calcium 8.7 mg/dl (8.5-10.1); Creatinine Clr Calc Pharmacy 45.2 ml/min; Est GFR (African American) 69.6; Est GFR (Non-African American) 60.1; Potassium 3.5 mmol/L (3.5-5.1)
[2019-10-12] MEDS ORDERED: dexAMETHasone 4 MG TAB PO SCH (08:00)
[2019-10-12] MEDS: DOCUSATE SODIUM 100 MG CAP PO SCH ×2 (08:50→21:04)
[2019-10-12] MEDS: MULTIVITAMIN TAB PO SCH (08:50)
[2019-10-12] MEDS: ASPIRIN 81 MG ECTAB PO SCH ×2 (08:50→21:04)
[2019-10-12] MEDS: GABAPENTIN 400 MG CAP PO SCH ×3 (08:50→21:04)
[2019-10-12] MEDS: AMLODIPINE BESYLATE 5 MG TAB PO SCH (08:51)
--- NOTE | 2019-10-12 09:58 | Orthopedic Progress Note ---
Date of Service October 12, 2019 Assessment & Plan (1) History of right hip replacement: Overall she is doing well. She is having too much pain in the right hip. She will be seen by physical therapy today for ambulation and range of motion exercises. We will keep her in the hospital for today for pain control. She can be discharged to home tomorrow. She is on aspirin for DVT prophylaxis. Present on Admission?: Yes Subjective Brianna was seen and examined at bedside this morning. Overall she is doing very well. She is not having much pain in her right hip. She was able to ambulate a little bit last night to the bathroom. She has no complaints. Physical Exam Musculoskeletal: On physical examination of the right hip, the Ann VAC dressing is to suction. Her leg lengths are equal. She has active dorsiflexion and plantarflexion of her right ankle. Sensation is intact throughout. Results & Data Vital Signs (Past 12 Hours) Vital Signs Temp Pulse Resp BP BP Pulse Ox 10/12/19 08:48 36.3 C L 74 18 120/59 L 99 10/12/19 03:15 36.7 C 74 16 137/68 97 10/12/19 00:15 36.6 C 76 16 130/71 98 Laboratory Results H & H 09/24/19 10/12/19 Range/Units 11:09 05:50 Hgb 12.1 9.4 L (12.0-16.0) g/dL Hct 37.6 28.4 L (37-47) % Coagulation 09/24/19 Range/Units 11:09 INR 1.0 (0.9-1.1) Diagnostic Findings Postoperative x-rays of the right hip show the prosthesis to be in anatomic alignment without any evidence of fracture, dislocation, or loosening. PG Care Time/CCT Total # of Minutes Spent Total Time Spent with Patient: Total time spent is greater than 50% in coordination of care (as documented) at patient's floor/unit and/or counseling patient: Coding Level of Care Code None Diagnoses History of right hip replacement Z96.641
--- NOTE | 2019-10-12 14:29 | Anesthesiology Progress Note ---
Date of Service October 12, 2019 Anesthesia Post Procedure Vital Signs Vital Signs: Temp Pulse Resp BP BP Pulse Ox 10/12/19 08:48 36.3 C L 74 18 120/59 L 99 10/12/19 03:15 36.7 C 74 16 137/68 97 10/12/19 00:15 36.6 C 76 16 130/71 98 10/11/19 19:15 36.5 C 68 16 113/61 96 10/11/19 15:06 36.9 C 73 16 110/70 97 Pain Intensity Right Hip: Pain Intensity: 3 Notes Mental Status: alert / awake / arousable and participated in evaluation Patient Amnestic to Procedure: Yes Nausea / Vomiting: adequately controlled Pain: adequately controlled Airway Patency, RR, SpO2: stable & adequate BP & HR: stable & adequate Hydration State: stable & adequate Neuraxial Anesthesia: was administered and sensory block resolved Anesthetic Complications: no major complications apparent
[2019-10-12 15:46] VITALS: O2SAT 97
[2019-10-12] MEDS: SENNA 8.6 MG TAB PO SCH (21:03)
[2019-10-13] MEDS: ACETAMINOPHEN 500 MG TAB PO SCH (05:04)
[2019-10-13] MEDS: KETOROLAC TROMETHAMINE 15 MG/ML VIAL IV SCH (05:04)
[2019-10-13 06:06] VITALS: PULSE 70; TEMP 97.9
[2019-10-13 07:40] VITALS: BP 160/77
[2019-10-13] MEDS: OXYCODONE HCL IR 5 MG TAB (IMMEDIATE RELEASE) PO PRN (07:40)
[2019-10-13] MEDS: GABAPENTIN 400 MG CAP PO SCH (07:41)
[2019-10-13] MEDS: MULTIVITAMIN TAB PO SCH (07:41)
[2019-10-13] MEDS: DOCUSATE SODIUM 100 MG CAP PO SCH (07:42)
[2019-10-13] MEDS: ASPIRIN 81 MG ECTAB PO SCH (07:42)
[2019-10-13] MEDS: AMLODIPINE BESYLATE 5 MG TAB PO SCH (07:42)
--- NOTE | 2019-10-13 07:54 | Orthopedic Progress Note ---
Date of Service October 13, 2019 Assessment & Plan (1) History of right hip replacement: Overall she is doing very well. She denies any much pain in the right hip. She will be seen by physical therapy again today for ambulation and range of motion exercises. She can be discharged home later today. She is on aspirin for DVT prophylaxis. She can follow-up with orthopedics in 2 weeks. Present on Admission?: Yes Subjective Brianna was seen and examined at bedside this morning. Overall she is doing very well. She not having much pain in the right hip. She was able to ambulate around the nurses station several times yesterday. She has no complaints. Physical Exam Musculoskeletal: On physical examination of the right hip, the Ann VAC dressing is to suction. Her leg lengths are equal. She is neurovascular intact. Results & Data Vital Signs (Past 12 Hours) Vital Signs Temp Pulse Resp BP BP Pulse Ox 10/13/19 07:38 160/77 H 10/13/19 06:05 36.6 C 70 16 125/72 97 10/12/19 23:59 36.5 C 75 16 159/80 H 97 PG Care Time/CCT Total # of Minutes Spent Total Time Spent with Patient: Total time spent is greater than 50% in coordination of care (as documented) at patient's floor/unit and/or counseling patient: Coding Level of Care Code None Diagnoses History of right hip replacement Z96.641
--- NOTE | 2019-10-13 07:58 | Discharge Summary ---
Date of Service October 13, 2019 Admission HPI Per Admitting Provider Brianna is a pleasant 79-year-old female who presented my office with complaints of chronic increasing right hip and groin pain. X-rays and clinical examination were diagnostic for primary osteoarthritis of the right hip. After failing conservative treatment, she elected to proceed with a right anterior total hip arthroplasty. Principal Diagnosis Right total hip arthroplasty Discharge Data Allergies Allergy/AdvReac Type Severity Reaction Status Date / Time loracarbef AdvReac Unknown nausea and Verified 10/11/19 05:42 vomiting nitrofurantoin AdvReac Unknown upset Verified 10/11/19 05:42 stomach Consultations 10/12/19 08:00 Consult Case Management - Discharge Planning Routine Procedures Performed Operation Date: 10/11/19 07:00 Actual Procedures p Right Anterior Total Hip Arthroplasty, Uncemented(Right) - Armando Brown DO Ordered Studies 10/11/19 07:00 FL fluoroscopy <1hr Routine FL hip RT 1V Routine Hospital Course (1) History of right hip replacement: On October 11, 2019 Brianna arrived at [facility] and underwent a right anterior total hip arthroplasty without complication. She had a spinal anesthetic. Postoperatively she was started on aspirin for DVT prophylaxis and discharged to general orthopedic floors. Her hospital course was uneventful. On postop day #1 her H&H was stable and her pain was well controlled. She was able to participate well with physical therapy doing range of motion and ambulation exercises. On postop day #2 she continued to do well. She was seen once again by physical therapy. She was then discharged home. She will follow- up with orthopedics in 2 weeks. Total Time Total Time Spent Total Time Spent (In Minutes): 20 Discharge Plan Discharge Items Patient Disposition: Home - Home Health Services Reason For Visit: Right Hip Degenerative Joint Disease Discharge Diagnosis: Right total hip arthroplasty Activity: As commented below Non-emergency contact: Surgeon Call non-emergency contact if: your temperature is above 101.5 and your wound has increased redness Follow-up/Referrals: Pippa Branch PA-C [Primary Care Provider] - Diet: Regular Addtl Attending Provider Instructions: Activity and Therapy Recommendations: * If you are using [facility] then therapy will be provided at your home until they feel you have accomplished all of your goals. * If you are using [facility] then Physical Therapy will be provided until they feel you are ready to start Outpatient Physical Therapy. * If you are not using home therapy then Outpatient Physical Therapy should start about 3-5 days from your day of surgery. Therapy will last about 6-10 weeks * You were shown a series of exercises in the hospital. Do these exercises three times each day including the exercises you were shown in physical therapy. * Get up and walk several times each day.~ For the first four weeks, try not to stand or walk for more than one hour at a time. If you do stand or walk for more than one hour, you will not hurt anything, but your leg will likely swell.~~ * As you feel comfortable, you may change from the walker or crutches to a cane and~then to independent walking. Medications: * Narcotic You will likely be sent home from the hospital with a prescription for the narcotic pain medication that worked best throughout your stay. * Aspirin Most patients will be required to take Aspirin 81mg twice a day for 6 weeks after surgery. This is obtained [id number] and a prescription is not necessary. * Other medications may be prescribed for specific circumstances. If you have any questions, please call the office at . * Resume previous home medications unless otherwise instructed TEDs/Elastic Stockings: The white elastic stockings help limit swelling and prevent blood clots from forming in your legs. The more you wear them, the more they work. Wear them for six weeks. Dressing Care: You will likely have a purple VAC dressing after surgery. This dressing will keep the incision dry and promote early healing. After about 7 days the batteries will wear out and the VAC will lose suction. Simply remove the dressing at that time and throw everything away, including the small suction machine. Then, you may leave the tom open to air or cover them with a dry dressing so they do not rub on your pants. The tom will be removed at your 2 week follow-up appointment. Showering: You may shower immediately with the purple VAC dressing. Let the shower spray hit your opposite side and slowly pat the plastic dry. Do not soak the dressing. After the dressing is removed you may shower normally with the tom exposed. Let soapy water run over the tom and pat them dry. Things To Watch For: * Drainage from the incision site that occurs more than one week after your surgery. * Increased redness at the incision site. * Fever above 102 degrees Fahrenheit. * Unusual chest pain or shortness of breath. * Call [facility] at with any of the above problems Follow-Up Visit: Follow-up with Dr. Brown 2-3 weeks after your day of surgery. An appointment was probably scheduled when you signed-up for surgery in the office. If you have any questions call Office Instructions: More detailed instructions as well as Frequently Asked Questions were provided in a folder by our office when you signed-up for surgery. Please review these instructions when you get home. If you have any further questions or concerns, please feel free to call the office at [phone] Pending Studies at Discharge: No Stand-Alone Forms: My [employer], Smoking Cessation Medications and DC Order Prescriptions: New oxycodone 5 mg Tablet 5 mg PO Q4H PRN (Reason: pain) Qty: 30 RF: 0 aspirin [Ecotrin Low Strength] 81 mg Tablet,Delayed Release (Dr/Ec) 81 mg PO BID 42 Days Qty: 0 RF: 0 Continued multivitamin [Daily Multi-Vitamin] tablet 1 tab PO QAM RF: 0 Glucosamine Relief 500 mg capsule 500 mg PO QAM RF: 0 Probiotic 3 billion cell capsule 3,000 mmu cells PO QAM RF: 0 calcium carbonate 600 mg calcium (1,500 mg) tablet 600 mg PO BID RF: 0 omega-3 acid ethyl esters 1 gram capsule 1 cap PO QAM RF: 0 gabapentin 400 mg capsule 400 mg PO TID Qty: 90 RF: 0 cholecalciferol (vitamin D3) 1,000 unit (25 mcg) tablet 1,000 units PO QAM RF: 0 acetaminophen [Tylenol Extra Strength] 500 mg tablet 500 mg PO Q6H PRN (Reason: Pain) RF: 0 amlodipine 2.5 mg tablet 2.5 mg PO QAM RF: 0 Discontinued tramadol 50 mg tablet 25 mg PO TID PRN (Reason: pain) RF: 0 Discharge Orders: Discharge Order (Routine); Ordered 10/13/19 Ordered By: Armando Brown Admission Data Admit Date/Time: 10/11/19 08:35 Attending Provider: Aramndo Brown Admit Provider: Armando Brown Primary Care Provider: Pippa Branch Coding Level of Care Code D/C Day Management <30 mins Diagnoses History of right hip replacement Z96.641
== END 2019-10-13 10:25 | disposition home or self-care (01) | DRG 470 ==
LOC: ASU 05:12 → 3E 08:35